=== PATIENT | female | born 1990 | race Caucasian/White ===

== ENCOUNTER 2017-04-08 11:46 | Emergency (ER) | payer MEDICAID ==
[~2017-04-08] VITALS: Ht 162.6 cm; Wt 82.6 kg
[2017-04-08 14:26] VITALS: BP 123/76
[2017-04-08 14:51] LABS: BASOPHIL % 0.8 % (0-2); PLATELET COUNT 221 x10^3mcL (130-400); RED CELL DISTRIBUTION WIDTH 13.1 % (11.5-14.5)
[2017-04-08 15:08] LABS: CARBON DIOXIDE 25.7 mmol/L (21-32); CHLORIDE SERUM 106 mmol/L (98-107); CREATININE SERUM 0.6 mg/dL (0.6-1.0); GFR1 > 60 mL/min; GLUCOSE SERUM 90 mg/dL (74-106); POTASSIUM SERUM 4.1 mmol/L (3.5-5.1); SODIUM SERUM 141 mmol/L (136-145)
[2017-04-08 15:12] LABS: ALKALINE PHOSPHATASE 67 U/L (46-116); ALT/SGPT 16 U/L (14-59); AMYLASE 68 U/L (25-115); AST/SGOT 12 U/L (15-37); BILIRUBIN TOTAL 0.3 mg/dL (0.20-1.00); LIPASE 132 IU/L (73-393); TOTAL PROTEIN, SERUM 7.7 g/dL (6.4-8.2)
[2017-04-08 15:13] LABS: ALBUMIN 3.2 g/dL (3.4-5.0)
== END 2017-04-08 15:46 | disposition home or self-care (01) ==
LOC: ED 11:46
PROVIDERS: Specialist
DX: N83.12 Corpus luteum cyst of left ovary (principal); E66.9 Obesity, unspecified
CPT/HCPCS: Q0092